=== PATIENT | female | born 1935 | race Caucasian/White ===

== ENCOUNTER 2017-11-04 09:03 | Day surgery (SDC) | payer MEDICARE, BC ==
[~2017-11-04 09:03] MED LIST: Lactated Ringers 1,000 ML IV SCH; Sodium Chloride 0.9% 5 ML Syringe FLUSH PRN
[2017-11-04] MEDS ORDERED: fentaNYL 100 MCG/2 ML SDV ONE (09:52)
[2017-11-04] MEDS ORDERED: Lidocaine 2% 100 MG/5 ML Syringe ONE (09:52)
[2017-11-04] MEDS ORDERED: Propofol 200 MG/20 ML SDV ONE (09:52)
[2017-11-04] MEDS ORDERED: Midazolam 1 MG/ML 2 ML SDV ONE (09:52)
[2017-11-04] MEDS ORDERED: EPINEPHrine 1:10,000 1 MG/10 ML Syringe ONE ×2 (10:28→10:52)
[2017-11-04] MEDS ORDERED: Lidocaine 2% 5 ML SDV IV ONE (10:35)
[2017-11-04] MEDS ORDERED: fentaNYL 100 MCG/2 ML SDV IV ONE (10:35)
[2017-11-04] MEDS ORDERED: Midazolam 1 MG/ML 2 ML SDV IV ONE (10:35)
[2017-11-04] MEDS ORDERED: Propofol 200 MG/20 ML SDV IV ONE (10:35)
--- NOTE | 2017-11-04 11:04 | PCM.OPNOTE ---
- General Post-Op/Procedure Note Date of Surgery/Procedure: 11/04/17 Operative Procedure(s): Upper GI endoscopy and biopsies. Findings: The patient has evidence of reflux esophagitis and questionable Monaco's esophagitis. Biopsies were taken and the results are pending. Pre Op Diagnosis: Dysphagia, Ongoing. Anesthesia Technique: MAC Primary Surgeon: Kayla White Condition: Good Free Text/Narrative:: INFORMED CONSENT: Patient is here today for elective upper GI endoscopy. All aspects of this procedure have been discussed with the patient. All possible complications also, including possibility of perforation, infection, pain, bleeding, numbness of the throat, swallowing difficulty and unknown complications. In the event of perforation the patient may need surgical exploration to repair the defect. The patient understands fully well. Patient did not have any further questions for me at the end of my interview. The patient wishes for me to proceed. INSTRUMENT USED: Video gastroscope ANESTHESIA: [MAC] ASA CLASSIFICATION: [2] PROCEDURE PERFORMED: [Upper gastrointestinal endoscopy and biopsies] PHARYNX: Normal. ESOPHAGUS: Normal. Proximal: Normal. Middle: Normal. Lower: Normal. GE Junction: Is at 45 cm. Shows evidence of reflux esophagitis. Biopsies were taken from this area to rule out Monaco's esophagitis.. STOMACH: Normal. Cardia: Normal. Fundus: Normal. Lesser Curvature: Normal. Greater Curvature: Normal. Antrum: Normal. Pylorus: Normal. DUODENUM: Normal. First Part: Normal. Second Part: Normal. Third Part: Normal. RETROFLEXION: Normal. BIOPSY: None. TOLERANCE: Excellent. COMPLICATIONS: None. Evidence of reflux esophagitis at the lower end of the esophagus. Biopsies are pending to rule out Monaco's esophagitis.
== END 2017-11-04 12:35 | disposition home or self-care (01) ==
LOC: KA.SDS 09:03
PROVIDERS: ATTEND Family Medicine
DX: K29.50 Unspecified chronic gastritis without bleeding (principal); K21.0 Gastro-esophageal reflux disease with esophagitis; E78.00 Pure hypercholesterolemia, unspecified; Z88.0 Allergy status to penicillin; Z88.1 Allergy status to other antibiotic agents; Z88.2 Allergy status to sulfonamides; Z79.899 Other long term (current) drug therapy
CPT/HCPCS: 00731; 43239; 88305; J0171; J2250; J2704; J3010; J7120

== ENCOUNTER 2020-06-07 14:08 | Emergency (ER) | payer MEDICARE, BC ==
--- NOTE | 2020-06-07 14:23 | EDM.PDOC ---
ED HPI GENERAL MEDICAL PROBLEM - General Chief Complaint: General Stated Complaint: SOMETHING STUCK IN THOAT Time Seen by Provider: 06/07/20 14:15 Source of Information: Reports: Patient - History of Present Illness INITIAL COMMENTS - FREE TEXT/NARRATIVE: 84-year-old female, eating chicken today at noon, when something did not go down right. She has had difficulty with swallowing and has had a slight cough since the event persisted. Cough varies with only phlegm production. She has not been able to drink water since the event occurred. Denies any bloody sputum. Onset: Today Duration: Hour(s): Location: Reports: Neck Quality: Reports: Burning, Pressure Severity: Moderate Improves with: Reports: None Worsens with: Reports: Other (Swallowing) - Related Data Allergies Allergy/AdvReac Type Severity Reaction Status Date / Time erythromycin base Allergy Rash Verified 06/07/20 14:13 Penicillins Allergy UNKNOWN Verified 06/07/20 14:13 sulfacetamide Allergy UNKNOWN Verified 06/07/20 14:13 Home Meds: Home Meds Calcium Carb/Vitamin D3/Vit K1 [Calcium + D Soft Chewable Tab] 1 each PO DAILY 11/03/17 [History] Ibuprofen [Advil] 200 mg PO ASDIRECTED 11/03/17 [History] Latanoprost [Xalatan] 2.5 ml EYEBOTH BEDTIME 11/03/17 [History] Levothyroxine [Synthroid] 50 mcg PO ACBREAKFAST 11/03/17 [History] Mirtazapine [Remeron] 15 mg PO BEDTIME 11/03/17 [History] Simvastatin [Zocor] 30 mg PO BEDTIME 11/03/17 [History] Triamcinolone Acetonide [Triamcinolone Acetonide 0.1% Oint] 1 applic TOP BID PRN 11/03/17 [History] Omeprazole 20 mg PO DAILY 06/07/20 [History] Past Medical History - Past Health History Medical/Surgical History: Denies Medical/Surgical History HEENT History: Reports: Cataract, Glaucoma Cardiovascular History: Reports: High Cholesterol Gastrointestinal History: Reports: Bowel Obstruction 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: Endometriosis, Endocrine/Metabolic History: Reports: Hypothyroidism Dermatologic History: Reports: Other (See Below) Other Dermatologic History: basal cell carcinoma - Past Surgical History Head Surgeries/Procedures: Reports: None Cardiovascular Surgical History: Reports: None Female Surgical History: Reports: Hysterectomy, Oophorectomy, Other (See Below) Other Female Surgeries/Procedures: bladder repair Musculoskeletal Surgical History: Reports: Other (See Below) Other Musculoskeletal Surgeries/Procedures:: rotator cuff repair/right shoulder Social & Family History - Family History Family Medical History: Noncontributory - Caffeine Use Caffeine Use: Reports: Coffee, Soda, Tea ED ROS GENERAL - Review of Systems Review Of Systems: Comprehensive ROS is negative, except as noted in HPI. ED EXAM, GENERAL - Physical Exam Exam: See Below Free Text/Narrative:: Alert oriented in mild distress. HEENT is negative discharge or deformity. [place] moist mucous membranes with no visualized obstruction in the posterior oral pharynx. Neck is soft supple no tenderness no mass presentation. Thorax is clear with no wheezes no crackles. Cardiac S1-S2 I do not appreciate murmur. There is no tenderness to the chest wall nor the supraclavicular notch region, nor trachea. X-ray shows no evidence of obstruction. Upon returning from x-ray she states that when raising her arms up for the lateral film she felt the alleged foreign body move, and has had no discomfort nor cough since. She is able to drink water with a straw and swallow with no difficulty encountered. Course - Orders/Labs/Meds Orders: Active Orders 24 hr Category Date Time Status CXR [Chest 2V] [CR] Stat Exams 06/07/20 14:12 Ordered - Re-Assessments/Exams Free Text/Narrative Re-Assessment/Exam: 06/07/20 14:46 Raising arms for the lateral x-ray seem to dislodge the chicken product and has had no symptoms since. Departure - Departure Time of Disposition: 14:35 Disposition: Home, Self-Care 01 Condition: Good Clinical Impression: Acute esophageal obstruction, Difficulty swallowing pills - Discharge Information *PRESCRIPTION DRUG MONITORING PROGRAM REVIEWED*: Not Applicable *COPY OF PRESCRIPTION DRUG MONITORING REPORT IN PATIENT CURT: Not Applicable Additional Instructions: Continue your medications as directed. Make sure you have plenty of moisture/fluids prior to eating or taking pills as well as when swallowing food and pill product. Contact your clinic to discuss the potential for a swallowing study given your history of difficulty with pills and numerous food products. I advised this due to the fact you had a normal EGD with Dr. Hernandez in the past. Carefully chew your food product and have plenty of water available at all times. Follow-up otherwise as needed. - Problem List & Annotations (1) Acute esophageal obstruction SNOMED Code(s): 876718378, 595584534 Code(s): K22.2 - ESOPHAGEAL OBSTRUCTION Status: Acute Priority: High (2) Difficulty swallowing pills SNOMED Code(s): 4373179162474 Code(s): R19.8 - OTH SYMPTOMS AND SIGNS INVOLVING THE DGSTV SYS AND ABDOMEN Status: Chronic Priority: Medium - Problem List Review Problem List Initiated/Reviewed/Updated: Yes - My Orders Last 24 Hours: My Active Orders 06/07/20 14:12 CXR [Chest 2V] [CR] Stat - Assessment/Plan Last 24 Hours: My Active Orders 06/07/20 14:12 CXR [Chest 2V] [CR] Stat Plan: Continue your medications as directed. Make sure you have plenty of moisture/fluids prior to eating or taking pills as well as when swallowing food and pill product. Contact your clinic to discuss the potential for a swallowing study given your history of difficulty with pills and numerous food products. I advised this due to the fact you had a normal EGD with Dr. Hernandez in the past. Carefully chew your food product and have plenty of water available at all times. Follow-up otherwise as needed.
--- NOTE | 2020-06-07 14:34 | CR ---
[id number] RAD/RAD Chest PA And Lateral EXAM: RAD Chest PA And Lateral INDICATION: SOMETHING STUCK IN THROAT. COMPARISON: CT from 2010. DISCUSSION: Cardiomediastinal silhouette is unchanged in size and contour compared to examination. COPD. No infiltrate, effusion, pneumothorax, or edema. No radiopaque foreign bodies identified. IMPRESSION: As above. Dov De La Torre MD 06/07/20 1843 Thank you for allowing us to participate in the care of your patient.
== END 2020-06-07 14:45 | disposition home or self-care (01) ==
LOC: KA.ED 14:08
DX: T18.128A Food in esophagus causing other injury, initial encounter (principal); R13.10 Dysphagia, unspecified; E78.00 Pure hypercholesterolemia, unspecified; E03.9 Hypothyroidism, unspecified; Z79.899 Other long term (current) drug therapy; Z88.1 Allergy status to other antibiotic agents; Z88.0 Allergy status to penicillin; Z88.2 Allergy status to sulfonamides
CPT/HCPCS: 71046; 99284-25

== ENCOUNTER 2023-09-12 09:31 | Emergency (ER) | payer MEDICARE, BC ==
[2023-09-12 10:10] LABS: BASOPHILS ABSOLUTE AUTO 0.01 10^3/uL (0.00-0.10); BASOPHILS PERCENT AUTO 0.2 % (0.0-1.0); EOSINOPHILS ABSOLUTE AUTO 0.15 10^3/uL (0.10-0.30); EOSINOPHILS PERCENT AUTO 3.3 % (1.0-3.0); HEMATOCRIT 40.7 % (37.0-47.0); HEMOGLOBIN 13.6 g/dL (12.0-16.0); IMMATURE GRAN ABSOLUTE AUTO 0.01 10^3/uL (0.00-0.50); IMMATURE GRAN PERCENT AUTO 0.2 % (0.0-5.0); LYMPHOCYTES ABSOLUTE AUTO 1.76 10^3/uL (1.00-4.00); LYMPHOCYTES PERCENT AUTO 39.3 % (20.0-40.0); MEAN CORPUSCULAR HEMOGLOBIN 30.4 pg (27.0-31.0); MEAN CORPUSCULAR HGB CONC 33.4 g/dL (32.0-36.0); MEAN CORPUSCULAR VOLUME 90.8 fL (82.0-92.0); MEAN PLATELET VOLUME 9.6 fL (7.4-10.4); MONOCYTES ABSOLUTE AUTO 0.49 10^3/uL (0.10-0.80); MONOCYTES PERCENT AUTO 10.9 % (2.0-8.0); NEUTROPHILS ABSOLUTE AUTO 2.06 10^3/uL (2.50-7.00); NEUTROPHILS PERCENT AUTO 46.1 % (50.0-70.0); PLATELET COUNT,PLT 193 10^3/uL (150-400); RED BLOOD CELL COUNT 4.48 10^6/uL (3.80-5.50); RED CELL DISTRIBUTION WIDTH 12.4 % (11.5-14.5); WHITE BLOOD CELL COUNT,WBC 4.48 10^3/uL (5.00-10.00)
[2023-09-12 10:27] LABS: ALANINE AMINOTRANSFERASE,ALT 19 U/L (14-63); ALBUMIN 3.31 g/dL (3.40-5.00); ALKALINE PHOSPHATASE 42 U/L (46-116); ANION GAP 12.1 mmol/L (5-15); ASPARTATE AMNIOTRANSFERASE,AST 21 U/L (15-37); BILIRUBIN TOTAL 0.5 mg/dL (0.2-1.0); BLOOD UREA NITROGEN,BUN 12 mg/dL (7-18); CALCIUM 8.7 mg/dL (8.7-10.3); CARBON DIOXIDE,CO2 28.8 mmol/L (21.0-32.0); CHLORIDE,CL 98 mmol/L (98-107); CREATININE 0.76 mg/dL (0.51-1.17); EST CRCL DRUG DOSING (CG) 36.75 mL/min; GLUCOSE RANDOM 80 mg/dL (70-140); POTASSIUM,K 3.9 mmol/L (3.5-5.1); PROTEIN TOTAL,TP 6.5 g/dL (6.4-8.2); SODIUM,NA 135 mmol/L (136-145)
[2023-09-12 10:29] LABS: C-REACTIVE PROTEIN < 0.50 mg/dL (0.00-0.50); ESTIMATED GFR 75 mL/min (>=60)
[2023-09-12 10:46] LABS: INFLUENZA A NAA NEGATIVE (NEGATIVE); INFLUENZA B NAA NEGATIVE (NEGATIVE); RESPIRATORY SYNCYTIAL VIR NAA NEGATIVE (NEGATIVE)
[2023-09-12 10:47] LABS: CORONAVIRUS COVID-19 NAA NEGATIVE (NEGATIVE)
== END 2023-09-12 11:13 | disposition home or self-care (01) ==
LOC: KA.ED 09:31
DX: I65.29 Occlusion and stenosis of unspecified carotid artery (principal); I10 Essential (primary) hypertension; E03.9 Hypothyroidism, unspecified; E78.00 Pure hypercholesterolemia, unspecified; Z79.82 Long term (current) use of aspirin; Z79.899 Other long term (current) drug therapy; Z88.0 Allergy status to penicillin; Z88.2 Allergy status to sulfonamides; Z20.822 Contact with and (suspected) exposure to COVID-19
CPT/HCPCS: 0241U; 71045; 80053; 83605; 84484; 85025; 86140; 93005; 93010; 99284